=== PATIENT | female | born 1935 | race Caucasian/White ===

== ENCOUNTER 2018-07-14 05:56 | Inpatient (IN) ==
[2018-07-14] MEDS ORDERED: Morphine Inj 4 MG/ML Vial IV.PUSH ONE ×2 (06:59→08:07)
--- NOTE | 2018-07-14 07:20 | ED ---
HPI General Chief Complaint: Fall Stated Complaint: Fall/Right elbow injury Time Seen by Provider: 07/14/18 06:25 History of Present Illness HPI Narrative: This is an 82-year-old female with a history of hypertension, diabetes mellitus, coronary disease, presents today with complaints of right elbow pain and right knee pain after mechanical fall at 3 AM this morning. The patient reports that it is very difficult to walk on her leg because of the pain. She reports worst pain in her right elbow. She is able to flex however it is swollen and edematous. There are no other injuries at the time of my evaluation. Related Data Home Medications Medication Instructions Recorded Confirmed aspirin [Aspir-Low] 81 mg PO DAILY 07/05/18 07/14/18 atorvastatin 10 mg PO DAILY 07/05/18 07/14/18 cholecalciferol (vitamin D3) 5,000 unit PO DAILY 07/05/18 07/14/18 [Vitamin D3] diltiazem HCl 120 mg PO BID 07/05/18 07/14/18 furosemide 40 mg PO DAILY 07/05/18 07/14/18 glipizide 2.5 mg PO BID 07/05/18 07/14/18 losartan 25 mg PO DAILY 07/05/18 07/14/18 metformin 500 mg PO BID 07/05/18 07/14/18 metoprolol tartrate 50 mg PO BID 07/05/18 07/14/18 rivaroxaban [Xarelto] 20 mg PO DAILY 07/05/18 07/14/18 Previous Rx's Medication Instructions Recorded tramadol-acetaminophen 1 tab PO Q8HR PRN #5 tab 07/05/18 Allergies Allergy/AdvReac Type Severity Reaction Status Date / Time No Known Allergies Allergy Verified 07/14/18 06:16 Review of Systems ROS: all other systems reviewed are negative Constitutional Reports system reviewed and no additional complaints, except as docu Eyes Reports system reviewed and no additional complaints, except as docu ENT Denies facial pain and Denies neck pain Cardiovascular Reports system reviewed and no additional complaints, except as docu Respiratory Reports system reviewed and no additional complaints, except as docu Musculoskeletal Denies back pain, Denies deformity and Reports other (Right elbow and right knee pain.) Neurologic Denies focal weakness, Denies paresthesias and Denies weakness PMF Medical History Medical History History of atrial fibrillation (Acute) History of high blood pressure (Acute) Hx of diabetes mellitus (Acute) Surgical History Surgical History History of orthopedic surgery (Acute) Hx of abdominoplasty (Acute) Social History Social History Substance History: No History of Abuse Smoking Status: Current every day smoker Tobacco Type: Cigarettes How Often Do You Have a Drink Containing Alcohol: Never Recent Travel in [facility] within the Last 8 Weeks: No Recent Out of Country Travel within the Last 8 Weeks: No Immunization History Tetanus Immunization: <5 Years Hx Influenza Vaccine This Season: No Exam Narrative Exam Narrative: GENERAL: Well-nourished, well-developed patient, complaining of pain in her right elbow. SKIN: Focused skin assessment warm/dry. HEAD: Normocephalic/atraumatic. EYES: No scleral icterus. No injection or drainage. NECK: Supple, trachea midline. No JVD or lymphadenopathy. GASTROINTESTINAL: Abdomen soft, non-tender, nondistended. MUSCULOSKELETAL: Tenderness to palpation on the olecranon of the right elbow. No obvious bony deformity. There is swelling and possible hemarthrosis. On examination patient's right knee, there is no ligamentous laxity. Patella appears to be intact. There is no deformity. BACK: Nontender without obvious deformity. No CVA tenderness. NEUROLOGICAL: Awake and alert. Cranial nerves II through XII intact. Motor grossly within normal limits. Five out of 5 muscle strength in all muscle groups. Normal speech. Course Initial Documented Vital Signs Temperature 97.3 F L 07/14/18 06:02 Pulse Rate 105 H 07/14/18 06:02 Respiratory Rate 16 07/14/18 06:02 Blood Pressure 155/106 H 07/14/18 06:02 Pulse Oximetry 99 07/14/18 06:02 Last Documented Vital Signs Temperature 97.3 F L 07/14/18 06:02 Pulse Rate 84 07/14/18 08:21 Respiratory Rate 18 07/14/18 08:21 Blood Pressure 159/95 H 07/14/18 08:21 Pulse Oximetry 94 L 07/14/18 08:21 Medical Decision Making [facility] [place] Narrative Medical decision making narrative: This is an 82-year-old female with a history of atrial fibrillation, on Xarelto, presents today with complaints of right elbow and right knee pain after mechanical fall this morning at 3 AM. The patient has a posterior displaced olecranon fracture on the right elbow. Right knee x-ray appears to show no evidence of fracture or effusion. Case was discussed with Dr. Hemant Paz's [employer]PHOL[employer] MECHANICJose who was made aware of the presentation and the fact that the patient was on Xarelto. He requested she be made n.p.o. after midnight obviously they wish to hold the Xarelto. Medical Screen Exam Complete: Yes Emergency Medical Condition: Yes Lab Data Result diagrams: 07/14/18 08:25 07/14/18 08:25 Imaging Data Radiologist's impression: Elbow X-Ray 07/14/18 07:02 CONCLUSION: Olecranon fracture as above. Knee X-Ray 07/14/18 07:02 CONCLUSION: Osteoporosis, negative for joint effusion or fracture Extensive vascular calcifications. Discharge Plan Discharge Disposition Patient Disposition: 30 Still Patient Discharge Details Diagnosis: Displaced fracture of olecranon process of right ulna with intra-articular extension, Anticoagulated, Hypertension, Diabetes mellitus, Atrial fibrillation Physicians Team ED Provider: Mann Segura Primary Care Provider: Laury Jameson Attending Provider: Kamran Thomas Discharge Interventions Interventions: Vital Signs Last Done: 07/14/18 08:21 Status ED Status: Admitted Patient
[2018-07-14] MEDS ORDERED: Metoprolol Tartrate 50 MG Tablet PO ONE (07:38)
--- NOTE | 2018-07-14 07:58 | XR ---
EXAM DATE: 07/14/2018 7:02 AM EDT AGE/SEX: 82 years / Female INDICATIONS: Right posterior elbow pain post fall. CLINICAL DATA: This is the patient's initial encounter. Patient reports that signs and symptoms have been present for 1 day and indicates a pain score of 9/10. MEDICAL/SURGICAL HISTORY: None. None. COMPARISON: [facility], ELBOW COMPLETE RIGHT 4V, 07/05/2018. . FINDINGS: Bones are osteoporotic. There is a fracture of the olecranon with a large joint effusion present. Fra cture fragments are displaced by 4 cm. Humerus is aligned with the radial head. CONCLUSION: Olecranon fracture as above. Electronically signed by: Angel Luis Nixon MD 07/14/2018 7:57 AM EDT
--- NOTE | 2018-07-14 07:59 | XR ---
EXAM DATE: 07/14/2018 7:02 AM EDT AGE/SEX: 82 years / Female INDICATIONS: Right knee pain post fall this morning CLINICAL DATA: This is the patient's initial encounter. Patient reports that signs and symptoms have been present for 1 day and indicates a pain score of 6/10. MEDICAL/SURGICAL HISTORY: None. None. COMPARISON: No prior exams available for comparison. FINDINGS: Bones are osteoporotic. Extensive vascular calcifications are noted. There is no pleural effusion. An atomic alignment without fracture. CONCLUSION: Osteoporosis, negative for joint effusion or fracture Extensive vascular calcifications. Electronically signed by: Angel Luis Nixon MD 07/14/2018 7:58 AM EDT
[2018-07-14 08:49] LABS: Activated Partial Thrombo Time 27.9 sec (24.3-30.1); INR 1.1 Ratio
[2018-07-14 08:56] LABS: Alanine Aminotransferase 24 U/L (10-53); Albumin 3.7 g/dL (3.4-5.0); Alkaline Phosphatase 121 U/L (45-117); Anion Gap 12 meq/L (5-15); Aspartate Aminotransferase 18 U/L (15-37); Blood Urea Nitrogen 20 mg/dL (7-18); Calcium 10.3 mg/dL (8.5-10.1); Carbon Dioxide 29.7 meq/L (21.0-32.0); Chloride 100 meq/L (98-107); Glomerular Filtration Rate 39 mL/min (>89); Glucose,Random 172 mg/dL (74-106); Sodium 142 meq/L (136-145); Total Protein 7.4 g/dL (6.4-8.2)
[2018-07-14] MEDS ORDERED: Dextrose 50% in Water 50 ML Vial IV.PUSH PRN (08:56)
[2018-07-14 08:58] LABS: Potassium 2.7 meq/L (3.5-5.1)
[2018-07-14 09:01] LABS: Baso # (Auto) 0.1 th/mm3 (0.0-0.2); Baso % (Auto) 0.5 % (0.0-2.0); Eos # (Auto) 0.1 th/mm3 (0.0-0.4); Eos % (Auto) 0.6 % (0.0-4.0); Hematocrit 39.3 % (35.0-46.0); Hemoglobin 13.5 gm/dL (11.6-15.3); Lymph # (Auto) 2.4 th/mm3 (1.0-4.8); Lymph % (Auto) 16.9 % (9.0-44.0); Mean Corpuscular HGB Conc 34.4 % (32.0-36.0); Mean Corpuscular Hemoglobin 34.2 pg (27.0-34.0); Mean Corpuscular Volume 99.3 fL (80.0-100.0); Mean Platelet Volume 9.9 fL (7.0-11.0); Mono # (Auto) 0.8 th/mm3 (0.0-0.9); Mono % (Auto) 5.5 % (0.0-8.0); Neut # (Auto) 10.8 th/mm3 (1.8-7.7); Neut % (Auto) 76.5 % (16.0-70.0); Platelet Count 261 th/mm3 (150-450); Red Blood Count 3.95 mil/mm3 (4.00-5.30); Red Cell Distribution Width 13.6 % (11.6-17.2); White Blood Count 14.2 th/mm3 (4.0-11.0)
--- NOTE | 2018-07-14 09:07 | P.HPIM ---
History of Present Illness Primary Care Physician: Laury Jameson MD History of Present Illness: Mrs. Rosenbaum is an 82-year-old female. She was admitted secondary to fall in which she sustained a left elbow fracture. The fracture is displaced. Surgical intervention is needed. She has had falls in the past but does not have that her no frequent falls. No other complaints at this time. Pain is controlled when seen. Potassium level is low in the ER. - Diagnosis (1) Displaced fracture of olecranon process of right ulna with intra-articular extension (2) Hypertension (3) Diabetes mellitus (4) Atrial fibrillation Inpatient Certification: I certify that the inpatient services were ordered in accordance with Medicare regulations governing the order. This includes certification that hospital inpatient services are reasonable and necessary and in the case of services not specified as inpatient-only under 42 CFR 419.22(n), that they are appropriately provided as inpatient services in accordance to with the 2-midnight benchmark under 43 CFR 412.3(e) Estimated Total Length of Stay (Days): 3 Plans for Post Hospital Care: SNF Review of Systems Constitutional: No fevers, no chills no night sweats, no fatigue, no weakness Eyes: No eye pain, no blurry vision, no loss of vision ENT: No sore throat, no ear pain, no rhinorrhea Cardiovascular: No chest pain, no tachycardia, no palpitations, no shortness of breath, no syncope Respiratory: No wheezing, no cough, no shortness of breath Gastrointestinal: No abdominal pain, no black tarry stools, no bright red blood per rectum, no vomiting, no diarrhea Musculoskeletal: joint pain, no muscle cramps, no stiffness Integumentary: No rash, no ulcers, no drainage Neurologic: No sensory loss, no loss of motor function, no dizziness Psychiatric: No behavioral changes, no hallucinations, no suicidal ideations PMFSH - History History Provided By: Patient - Medical History Medical History: Medical History (Last Updated 07/14/18 @ 06:20 by Cheryl Armendariz RN) History of atrial fibrillation History of high blood pressure Hx of diabetes mellitus - Surgical History Surgical History: Surgical History (Last Updated 07/14/18 @ 06:20 by Cheryl Armendariz RN) History of orthopedic surgery Hx of abdominoplasty - Family History Family History: Family History (Last Updated 07/14/18 @ 09:00 by Kamran Thomas MD) Other Diabetes Osteoarthritis - Tobacco History Tobacco Use In Past 30 Days: Yes Smoking Status: Current every day smoker Tobacco Type: Cigarettes - Alcohol History How Often Do You Have a Drink Containing Alcohol: Never - Substance Use History Substance History: No History of Abuse - Travel History Recent Travel in the [place] Within the Last 8 Weeks: No Recent Travel Out of the Country Within the Last 8 Weeks: No - Immunization History Tetanus Immunization: <5 Years Hx Influenza Vaccine This Season: No Medications and Allergies Allergies Allergy/AdvReac Type Severity Reaction Status Date / Time No Known Allergies Allergy Verified 07/14/18 06:16 Home Medications Medication Instructions Recorded Confirmed Type aspirin [Aspir-Low] 81 mg PO DAILY 07/05/18 07/14/18 History atorvastatin 10 mg PO DAILY 07/05/18 07/14/18 History cholecalciferol (vitamin D3) 5,000 unit PO DAILY 07/05/18 07/14/18 History [Vitamin D3] diltiazem HCl 120 mg PO BID 07/05/18 07/14/18 History furosemide 40 mg PO DAILY 07/05/18 07/14/18 History glipizide 2.5 mg PO BID 07/05/18 07/14/18 History losartan 25 mg PO DAILY 07/05/18 07/14/18 History metformin 500 mg PO BID 07/05/18 07/14/18 History metoprolol tartrate 50 mg PO BID 07/05/18 07/14/18 History rivaroxaban [Xarelto] 20 mg PO DAILY 07/05/18 07/14/18 History Exam Vital signs: Vital Signs 07/14/18 06:02 07/14/18 07:32 07/14/18 07:37 Temperature 97.3 F L Pulse Rate 105 H 80 Respiratory Rate 16 18 18 Blood Pressure 155/106 H 206/101 H Pulse Oximetry 99 93 L 07/14/18 08:21 Temperature Pulse Rate 84 Respiratory Rate 18 Blood Pressure 159/95 H Pulse Oximetry 94 L Intake & Output 07/13/18 07/14/18 07/14/18 18:59 06:59 18:59 Weight 75.7 kg Narrative: GENERAL: NAD, A&Ox3 HEAD: Normocephalic. NECK: Supple, trachea midline. No lymphadenopathy. EYES: No scleral icterus. No injection or drainage. CARDIOVASCULAR: Regular rate and rhythm without murmurs, gallops, or rubs. RESPIRATORY: Breath sounds equal bilaterally. No accessory muscle use. GASTROINTESTINAL: Abdomen soft, non-tender, nondistended. MUSCULOSKELETAL: No cyanosis, or edema. Tenderness and decreased ROM at right elbow. SKIN: Warm and dry. NEURO: No focal neurological deficits. Results - Labs CBC & Chem 7: 07/14/18 08:25 07/14/18 08:25 - Imaging Impressions Elbow X-Ray 07/14/18 07:02 CONCLUSION: Olecranon fracture as above. Knee X-Ray 07/14/18 07:02 CONCLUSION: Osteoporosis, negative for joint effusion or fracture Extensive vascular calcifications. Caprini VTE Risk Assessment Caprini VTE Risk Assessment: No/Low Risk (score <= 1) Caprini Risk Assessment Model: Point Value = 1 Point Value = 2 Point Value = 3 Point Value = 5 Age 41-60 Minor surgery BMI > 25 kg/m2 Swollen legs Varicose veins or History of unexplained or recurrent spontaneous Oral contraceptives or hormone replacement Sepsis (< 1 month) Serious lung disease, including pneumonia (< 1 month) Abnormal pulmonary function Acute myocardial infarction Congestive heart failure (< 1 month) History of inflammatory bowel disease Medical patient at bed rest Age 61-74 Arthroscopic surgery Major open surgery (> 45 min) Laparoscopic surgery (> 45 min) Malignancy Confined to bed (> 72 hours) Immobilizing plaster cast Central venous access Age >= 75 History of VTE Family history of VTE Factor V Leiden Prothrombin [id number] Lupus anticoagulant Anticardiolipin antibodies Elevated serum homocysteine Heparin-induced thrombocytopenia Other congenital or acquired thrombophilia Stroke (< 1 month) Elective arthroplasty Hip, pelvis, or leg fracture Acute spinal cord injury (< 1 month) Prophylaxis Regimen: Total Risk Factor Score Risk Level Prophylaxis Regimen 0-1 Low Early ambulation 2 Moderate Order ONE of the following: *Sequential Compression Device (SCD) *Heparin 5000 units SQ BID 3-4 Higher Order ONE of the following medications: *Heparin 5000 units SQ TID *Enoxaparin/Lovenox 40 mg SQ daily (WT < 150 kg, CrCl > 30 mL/min) *Enoxaparin/Lovenox 30 mg SQ daily (WT < 150 kg, CrCl > 10-29 mL/min) *Enoxaparin/Lovenox 30 mg SQ BID (WT < 150 kg, CrCl > 30 mL/min) AND/OR *Sequential Compression Device (SCD) 5 or more Highest Order ONE of the following medications: *Heparin 5000 units SQ TID (Preferred with Epidurals) *Enoxaparin/Lovenox 40 mg SQ daily (WT < 150 kg, CrCl > 30 mL/min) *Enoxaparin/Lovenox 30 mg SQ daily (WT < 150 kg, CrCl > 10-29 mL/min) *Enoxaparin/Lovenox 30 mg SQ BID (WT < 150 kg, CrCl > 30 mL/min) AND *Sequential Compression Device (SCD) Assessment and Plan - Assessment (1) Displaced fracture of olecranon process of right ulna with intra-articular extension Code(s): S52.031A - Status: Acute (2) Hypertension Code(s): I10 - Status: Acute (3) Diabetes mellitus Code(s): E11.9 - Status: Acute (4) Atrial fibrillation Code(s): I48.91 - Status: Acute - Plan 82 year old female admitted secondary to displaced right elbow fracture Displaced right elbow fracture [place] for pain Orthopedic surgeon consulted Plan for surgical repair NPO after midnight Physical therapy after surgery Occupational therapy after surgery Diabetes mellitus type 2 Follow blood sugars Insulin sliding scale Diabetic diet Hypertension Continue baseline treatment Follow blood pressures Adjust treatments as needed As needed enalapril Atrial fibrillation Follow on telemetry Controlled Hold anticoagulation for pending surgery Continue diltiazem Resume Xarelto after surgery completed. Hypokalemia Provide potassium supplement Recheck this afternoon Replace as needed Continue to monitor DVT prophylaxis Currently on Xarelto Xarelto on hold for surgery Resume Xarelto after surgery (1) Displaced fracture of olecranon process of right ulna with intra-articular extension Qualifiers: Encounter type: initial encounter Fracture type: closed Qualified Code(s): S52.031A - Displaced fracture of olecranon process with intraarticular extension of right ulna, initial encounter for closed fracture (2) Hypertension Qualifiers: Hypertension type: unspecified Qualified Code(s): I10 - Essential (primary) hypertension (3) Diabetes mellitus Qualifiers: Diabetes mellitus type: type 2 Diabetes mellitus penitentiary insulin use: without penitentiary use (4) Atrial fibrillation Qualifiers: Atrial fibrillation type: chronic Qualified Code(s): I48.2 - Chronic atrial fibrillation
[2018-07-14] MEDS: Furosemide 40 MG Tablet PO SCH (09:37)
[2018-07-14] MEDS: dilTIAZem CD 240 MG Capsule PO SCH (09:38)
[2018-07-14] MEDS: Sod Chloride 0.9% Inj 1,000 ML IV.CONT SCH (09:39)
[2018-07-14] MEDS: Insulin NovoLOG Aspart Correctional Sugar Inj SQ SCH ×3 (12:56→20:33)
--- NOTE | 2018-07-14 15:48 | ECG ---
Date Performed: 07/14/2018 Time Performed: 08:16:58 PTAGE: 82 years EKG: ATRIAL FIBRILLATION MARKED LEFT AXIS DEVIATION INTRAVENTRICULAR CONDUCTION DELAY VOLTAGE CR ITERIA FOR LVH POSSIBLE SEPTAL MYOCARDIAL INFARCTION ABNORMAL ECG PREVIOUS TRACING : 05/03/2015 00.23 Compared to previous tracing,atrial fibrillation is new. DOCTOR: Heidi Rizzo Interpretating Date/Time 07/14/2018 15:47:14
[2018-07-14] MEDS: Metoprolol Tartrate 50 MG Tablet PO SCH (20:33)
--- NOTE | 2018-07-14 21:40 | P.CONOP ---
[facility] Orthopedics Consult Note - [facility] Consult date: 07/14/18 Consult reason: fracture Chief complaint: Right Displaced Olecranon Fracture, Anticoagulated Narrative: 82 year old female status post mechanical fall last night landing on right elbow and knee. Chief complaint is right elbow pain and right knee pain with giving way. She notes no previous problems with the elbow but prior surgery on the right knee to fix a patella fracture several years ago. Right elbow pain is located to the posterior elbow, worse with movement, better with immobilization and pain medication. She notes some decreased sensation in the small finger since the injury. Denies weakness. Also complaining of right knee pain and instability sensation when she tries to put weight on it. She locates the pain to the anterior aspect of the knee. She denies numbness, tingling or weakness. It is worse with full extension and attempted weight bearing. Denies other injury. Of note she is on Xarelto for a fib, last taken yesterday. Review of Systems All other systems reviewed negative except as stated in HPI Musculoskeletal: Reports joint pain Comments: right elbow, right knee PMFSH - History History Provided By: Patient - Medical History Medical History: Medical History (Last Reviewed 07/14/18 @ 21:26 by Afia Li MD) History of atrial fibrillation History of high blood pressure Hx of diabetes mellitus - Surgical History Surgical History: Surgical History (Last Reviewed 07/14/18 @ 21:26 by Afia Li MD) History of orthopedic surgery (Acute) Hx of abdominoplasty - Family History Family History: Family History (Last Reviewed 07/14/18 @ 21:26 by Afia Li MD) Other Diabetes Osteoarthritis - Social History I have reviewed the patient's Social History: Yes - Tobacco History Second Hand Smoke Exposure: Yes Tobacco Use In Past 30 Days: Yes Smoking Status: Current every day smoker Tobacco Type: Cigarettes - Alcohol History How Often Do You Have a Drink Containing Alcohol: Never - Substance Use History Substance History: No History of Abuse - Travel History Recent Travel in the [place] Within the Last 8 Weeks: No Recent Travel Out of the Country Within the Last 8 Weeks: No - Immunization History Tetanus Immunization: <5 Years Hx Influenza Vaccine This Season: No Medications and Allergies Active Medications: Active Medications Hydrocodone Bitart/Acetaminophen ([place] 10/325) 1 tab PO Q4H PRN PRN Reason: Pain 7 to 10 Hydrocodone Bitart/Acetaminophen ([place] 5/325) 1 tab PO Q4H PRN PRN Reason: Pain 3 to 6 Last Admin: 07/14/18 16:38 Dose: 1 tab Al Hydroxide/Mg Hydroxide (Milk Of [place] Liq) 30 ml PO Q12H PRN PRN Reason: Mild Constipation Atorvastatin Calcium (Lipitor) 10 mg PO DAILY [facility] Last Admin: 07/14/18 09:37 Dose: 10 mg Dextrose (D50w Vial) 50 ml IV.PUSH UNSCH PRN PRN Reason: PER HYPOGLYCEMIA PROTOCOL Diltiazem HCl (Cardizem Cd 24hr) 240 mg PO DAILY [facility] Last Admin: 07/14/18 09:38 Dose: 240 mg Enalaprilat (Vasotec Inj) 1.25 mg IV.PUSH Q6H PRN PRN Reason: SBP>160, DBP>90 Last Admin: 07/14/18 10:38 Dose: 1.25 mg Furosemide (Lasix) 40 mg PO DAILY [facility] Last Admin: 07/14/18 09:37 Dose: 40 mg Glucagon (Glucagon Inj) 1 mg OTHER PRN PRN PRN Reason: for Hypoglycemia Protocol Sodium Chloride (Ns Inj) 1,000 mls @ 75 mls/hr IV.CONT .[id number] [facility] Last Infusion: 07/14/18 11:16 Dose: 75 mls/hr Insulin Aspart (Novolog Insulin [place] Sugar Inj) 0 unit SQ ACHS [facility]; Protocol Last Admin: 07/14/18 20:33 Dose: Not Given Losartan Potassium (Cozaar) 25 mg PO DAILY [facility] Metoprolol Tartrate (Lopressor) 50 mg PO BID [facility] Last Admin: 07/14/18 20:33 Dose: 50 mg Ondansetron HCl (Zofran Inj) 4 mg IV.PUSH Q6H PRN PRN Reason: NAUSEA OR VOMITING Last Admin: 07/14/18 19:04 Dose: 4 mg Vitamin D (Vitamin D3) 5,000 unit PO DAILY [facility] Last Admin: 07/14/18 09:38 Dose: 5,000 unit Allergies Allergy/AdvReac Type Severity Reaction Status Date / Time No Known Allergies Allergy Verified 07/14/18 06:16 Home Medications Medication Instructions Recorded Confirmed Type aspirin [Aspir-Low] 81 mg PO DAILY 07/05/18 07/14/18 History atorvastatin 10 mg PO DAILY 07/05/18 07/14/18 History cholecalciferol (vitamin D3) 5,000 unit PO DAILY 07/05/18 07/14/18 History [Vitamin D3] diltiazem HCl 120 mg PO BID 07/05/18 07/14/18 History furosemide 40 mg PO DAILY 07/05/18 07/14/18 History glipizide 2.5 mg PO BID 07/05/18 07/14/18 History losartan 25 mg PO DAILY 07/05/18 07/14/18 History metformin 500 mg PO BID 07/05/18 07/14/18 History metoprolol tartrate 50 mg PO BID 07/05/18 07/14/18 History rivaroxaban [Xarelto] 20 mg PO DAILY 07/05/18 07/14/18 History Exam Vital signs: Vital Signs 07/14/18 06:02 07/14/18 07:32 07/14/18 07:37 Temperature 97.3 F L Pulse Rate 105 H 80 Respiratory Rate 16 18 18 Blood Pressure 155/106 H 206/101 H Pulse Oximetry 99 93 L 07/14/18 08:21 07/14/18 08:30 07/14/18 09:07 Temperature Pulse Rate 84 84 Respiratory Rate 18 Blood Pressure 159/95 H Pulse Oximetry 94 L 95 07/14/18 09:16 07/14/18 10:03 07/14/18 10:41 Temperature Pulse Rate 76 84 77 Respiratory Rate 18 18 18 Blood Pressure 181/95 H 171/81 H 195/116 H Pulse Oximetry 95 95 93 L 07/14/18 11:02 07/14/18 12:00 07/14/18 15:45 Temperature 98 F 98 F Pulse Rate 80 75 88 Respiratory Rate 18 20 20 Blood Pressure 179/108 H 165/80 H 152/82 H Pulse Oximetry 97 94 L 96 Intake & Output 07/14/18 07/14/18 07/15/18 06:59 18:59 06:59 Intake Total 100 / 100 Balance 100 / 100 Weight 75.7 kg 75.7 kg Intake: IV 100 / 100 NS Inj 1,000 ML @ 75 mls/hr IV. 100 / 100 CONT .[id number] [facility] Rx#: [id number] Other: Date of Last Bowel Movement 07/14/18 Weight On Admission 75.7 kg - Constitutional no acute distress, cooperative - Routine HEENT Exam Head: Present: normocephalic, atraumatic - Routine Neck Exam Present: supple - Routine Respiratory Exam Absent: accessory muscle use - Routine Cardiovascular Exam Present: RRR - Routine Extremities Exam Present: joint swelling Comments: right elbow - Detailed Upper Extremity Exam Elbow: Right deformity, Right swelling, Right tenderness (olecranon), Right wound (small scab noted laterally from previous fall), Right pain with passive ROM - Detailed Lower Extremity Exam Knee: Left normal inspection, Right pain with active ROM (extension), Right pain with passive ROM (extension), Bilateral intact knee extension - Routine Neurological Exam Present: alert, oriented X3 Results - Labs Result Diagrams: 07/14/18 08:25 07/14/18 13:14 Labs: Laboratory Results - last 24 hr 07/14/18 07/14/18 07/14/18 08:25 08:25 08:25 CBC w Diff Auto diff final WBC 14.2 H RBC 3.95 L Hgb 13.5 Hct 39.3 MCV 99.3 MCH 34.2 H MCHC 34.4 RDW 13.6 Plt Count 261 MPV 9.9 Neut % (Auto) 76.5 H Lymph % (Auto) 16.9 [place] % (Auto) 5.5 Eos % (Auto) 0.6 Baso % (Auto) 0.5 Neut # (Auto) 10.8 H Lymph # (Auto) 2.4 [place] # (Auto) 0.8 Eos # (Auto) 0.1 Baso # (Auto) 0.1 WBC Differential . Differential Comment . PT 11.0 INR 1.1 APTT 27.9 Sodium 142 Potassium 2.7 L* Chloride 100 Carbon Dioxide 29.7 Anion Gap 12 BUN 20 H Creatinine 1.30 H Estimated GFR 39 L POC Glucose Random Glucose 172 H Calcium 10.3 H Total Bilirubin 0.6 AST 18 ALT 24 Alkaline Phosphatase 121 H Total Protein 7.4 Albumin 3.7 Blood Type Blood Type Recheck Antibody Screen 07/14/18 07/14/18 07/14/18 08:25 12:43 13:14 CBC w Diff WBC RBC Hgb Hct MCV MCH MCHC RDW Plt Count MPV Neut % (Auto) Lymph % (Auto) [place] % (Auto) Eos % (Auto) Baso % (Auto) Neut # (Auto) Lymph # (Auto) [place] # (Auto) Eos # (Auto) Baso # (Auto) WBC Differential Differential Comment PT INR APTT Sodium Potassium 2.9 L* Chloride Carbon Dioxide Anion Gap BUN Creatinine Estimated GFR POC Glucose 159 H Random Glucose Calcium Total Bilirubin AST ALT Alkaline Phosphatase Total Protein Albumin Blood Type A Positive Blood Type Recheck Not needed Antibody Screen Negative 07/14/18 20:31 CBC w Diff WBC RBC Hgb Hct MCV MCH MCHC RDW Plt Count MPV Neut % (Auto) Lymph % (Auto) [place] % (Auto) Eos % (Auto) Baso % (Auto) Neut # (Auto) Lymph # (Auto) [place] # (Auto) Eos # (Auto) Baso # (Auto) WBC Differential Differential Comment PT INR APTT Sodium Potassium Chloride Carbon Dioxide Anion Gap BUN Creatinine Estimated GFR POC Glucose 176 H Random Glucose Calcium Total Bilirubin AST ALT Alkaline Phosphatase Total Protein Albumin Blood Type Blood Type Recheck Antibody Screen - Diagnostic results Imaging: Impressions Elbow X-Ray 07/14/18 07:02 CONCLUSION: Olecranon fracture as above. Knee X-Ray 07/14/18 07:02 CONCLUSION: Osteoporosis, negative for joint effusion or fracture Extensive vascular calcifications. Elbow x-ray: report reviewed, image reviewed (displaced olecranon fracture) Knee x-ray: report reviewed, image reviewed (osteoarthritis) Assessment and Plan - Problem List (1) Displaced fracture of olecranon process of right ulna with intra-articular extension Code(s): S52.031A - Displaced fracture of olecranon process with intraarticular extension of right ulna, initial encounter for closed fracture Status: Acute Onset Date: ~07/14/18 Qualifiers: Encounter type: initial encounter Fracture type: closed Qualified Code(s) : S52.031A - Displaced fracture of olecranon process with intraarticular extension of right ulna, initial encounter for closed fracture - Assessment and Plan Assessment: 82 year old female with right displaced, closed olecranon fracture Plan: 1. NWB RUE in sling/splint 2. Pain control 3. To OR 07/15/18 for ORIF right olecranon pending medical clearance. I discussed the risks, benefits and alternatives to the procedure with the patient and she would like to proceed with surgical fixation. 4. NPO after midnight 5. Hold anticoagulation for surgery
[2018-07-14] MEDS ORDERED: Metoprolol Tartrate 25 MG Tablet PO ONE (22:42)
[2018-07-14] MEDS ORDERED: Chlorhexidine Gluconate 2% 1 Pack (2 Cloths) TOPICAL ONE (22:42)
[2018-07-14] MEDS ORDERED: Sodium Chlor 0.9% Inj 500 ML IV.SIG SCH (23:00)
[2018-07-15] MEDS: Sod Chloride 0.9% Inj 1,000 ML IV.CONT SCH ×2 (01:07→12:36)
[2018-07-15 06:33] LABS: Baso # (Auto) 0.1 th/mm3 (0.0-0.2); Baso % (Auto) 0.9 % (0.0-2.0); Eos # (Auto) 0.1 th/mm3 (0.0-0.4); Eos % (Auto) 0.8 % (0.0-4.0); Hematocrit 37.3 % (35.0-46.0); Hemoglobin 12.6 gm/dL (11.6-15.3); Lymph # (Auto) 2.2 th/mm3 (1.0-4.8); Lymph % (Auto) 22.3 % (9.0-44.0); Mean Corpuscular HGB Conc 33.8 % (32.0-36.0); Mean Corpuscular Hemoglobin 33.2 pg (27.0-34.0); Mean Corpuscular Volume 98.1 fL (80.0-100.0); Mean Platelet Volume 9.3 fL (7.0-11.0); Mono # (Auto) 0.8 th/mm3 (0.0-0.9); Mono % (Auto) 7.7 % (0.0-8.0); Neut # (Auto) 6.7 th/mm3 (1.8-7.7); Neut % (Auto) 68.3 % (16.0-70.0); Platelet Count 234 th/mm3 (150-450); Red Cell Distribution Width 14.8 % (11.6-17.2); White Blood Count 9.8 th/mm3 (4.0-11.0)
[2018-07-15 06:53] LABS: Alanine Aminotransferase 18 U/L (10-53); Albumin 3.3 g/dL (3.4-5.0); Anion Gap 9 meq/L (5-15); Aspartate Aminotransferase 15 U/L (15-37); Blood Urea Nitrogen 17 mg/dL (7-18); Calcium 9.6 mg/dL (8.5-10.1); Carbon Dioxide 30.1 meq/L (21.0-32.0); Chloride 104 meq/L (98-107); Glomerular Filtration Rate 44 mL/min (>89); Glucose,Random 122 mg/dL (74-106); Sodium 143 meq/L (136-145)
[2018-07-15 06:56] LABS: Alkaline Phosphatase 123 U/L (45-117); Total Protein 6.7 g/dL (6.4-8.2)
[2018-07-15] MEDS: dilTIAZem CD 240 MG Capsule PO SCH (09:21)
[2018-07-15] MEDS: Metoprolol Tartrate 50 MG Tablet PO SCH ×2 (09:22→20:45)
[2018-07-15] MEDS: Furosemide 40 MG Tablet PO SCH (09:22)
[2018-07-15] MEDS: Insulin NovoLOG Aspart Correctional Sugar Inj SQ SCH ×4 (10:22→21:02)
--- NOTE | 2018-07-15 12:16 | P.PN ---
Subjective Interval history: Follow-up right displaced olecranon fracture July 15, 2018-patient seen and examined, denies any significant right upper extremity pain. Currently n.p.o. Daughter by the bedside Physical Exam Vital signs: Vital Signs 07/14/18 15:45 07/14/18 20:00 07/15/18 00:00 Temperature 98 F 97.6 F 98.0 F Pulse Rate 88 90 76 Respiratory Rate 20 17 16 Blood Pressure 152/82 H 149/78 H 162/89 H Pulse Oximetry 96 94 L 95 07/15/18 03:12 07/15/18 08:00 07/15/18 09:00 Temperature 98.5 F 98.3 F Pulse Rate 91 H 88 82 Respiratory Rate 18 18 Blood Pressure 187/80 H 169/91 H Pulse Oximetry 95 97 Intake & Output 07/14/18 07/15/18 07/15/18 18:59 06:59 18:59 Intake Total 100 / 100 100 / 100 Output Total 100 / 100 Balance 100 / 100 100 / 100 -100 / -100 Weight 75.7 kg Intake: IV 100 / 100 100 / 100 NS Inj 1,000 ML @ 75 mls/hr IV. 100 / 100 100 / 100 CONT .[id number] [facility] Rx#: [id number] Output: Urine 100 / 100 Other: # Voids 3 Date of Last Bowel Movement 07/14/18 07/14/18 Weight On Admission 75.7 kg Narrative: GENERAL: NAD SKIN: Warm and dry. HEAD: Atraumatic. Normocephalic. EYES: Pupils equal and round. No scleral icterus. No injection or drainage. ENT: No nasal bleeding or discharge. Mucous membranes pink and moist. NECK: Trachea midline. No JVD. CARDIOVASCULAR: Regular rate and rhythm. RESPIRATORY: No accessory muscle use. Clear to auscultation. Breath sounds equal bilaterally. GASTROINTESTINAL: Abdomen soft, non-tender, nondistended. Hepatic and splenic margins not palpable. MUSCULOSKELETAL: Extremities without clubbing, cyanosis, or edema. No obvious deformities. NEUROLOGICAL: Awake and alert. No obvious cranial nerve deficits. Motor grossly within normal limits. Five out of 5 muscle strength in the arms and legs. Right upper extremity in dressing-neurovascular intact PSYCHIATRIC: Appropriate mood and affect; insight and judgment normal. Results - Labs CBC & Chem 7: 07/15/18 05:11 07/15/18 05:11 Laboratory Results - last 24 hr 07/14/18 07/14/18 07/14/18 12:43 13:14 20:31 WBC RBC Hgb Hct MCV MCH MCHC RDW Plt Count MPV Neut % (Auto) Lymph % (Auto) [place] % (Auto) Eos % (Auto) Baso % (Auto) Neut # (Auto) Lymph # (Auto) [place] # (Auto) Eos # (Auto) Baso # (Auto) WBC Differential Differential Comment Sodium Potassium 2.9 L* Chloride Carbon Dioxide Anion Gap BUN Creatinine Estimated GFR POC Glucose 159 H 176 H Random Glucose Calcium Total Bilirubin AST ALT Alkaline Phosphatase Total Protein Albumin 07/15/18 07/15/18 07/15/18 05:11 05:11 07:41 WBC 9.8 RBC 3.80 L Hgb 12.6 Hct 37.3 MCV 98.1 MCH 33.2 MCHC 33.8 RDW 14.8 Plt Count 234 MPV 9.3 Neut % (Auto) 68.3 Lymph % (Auto) 22.3 [place] % (Auto) 7.7 Eos % (Auto) 0.8 Baso % (Auto) 0.9 Neut # (Auto) 6.7 Lymph # (Auto) 2.2 [place] # (Auto) 0.8 Eos # (Auto) 0.1 Baso # (Auto) 0.1 WBC Differential . Differential Comment Auto diff final Sodium 143 Potassium 3.0 L Chloride 104 Carbon Dioxide 30.1 Anion Gap 9 BUN 17 Creatinine 1.17 H Estimated GFR 44 L POC Glucose 128 H Random Glucose 122 H Calcium 9.6 Total Bilirubin 0.6 AST 15 ALT 18 Alkaline Phosphatase 123 H Total Protein 6.7 D Albumin 3.3 L Assessment and Plan - Assessment (1) Displaced fracture of olecranon process of right ulna with intra-articular extension Code(s): S52.031A - Displaced fracture of olecranon process with intraarticular extension of right ulna, initial encounter for closed fracture Status: Acute Onset Date: ~07/14/18 (2) Hypertension Code(s): I10 - Essential (primary) hypertension Status: Acute (3) Diabetes mellitus Code(s): E11.9 - Type 2 diabetes mellitus without complications Status: Acute (4) Atrial fibrillation Code(s): I48.91 - Unspecified atrial fibrillation Status: Acute - Plan 82-year-old female with Displaced right elbow fracture [place] for pain Orthopedic surgeon consulted for repair today July 15, 2018 Patient is medically clear for surgery Physical therapy after surgery Occupational therapy after surgery Diabetes mellitus type 2 Insulin sliding scale Diabetic diet Hypertension Continue baseline treatment As needed enalapril Atrial fibrillation Controlled Hold anticoagulation for pending surgery Continue diltiazem Resume Xarelto after surgery completed. Hypokalemia Please let try to monitor DVT prophylaxis Currently on Xarelto Xarelto on hold for surgery Patient is medically clear for surgery today (1) Displaced fracture of olecranon process of right ulna with intra-articular extension Qualifiers: Encounter type: initial encounter Fracture type: closed Qualified Code(s): S52.031A - Displaced fracture of olecranon process with intraarticular extension of right ulna, initial encounter for closed fracture (2) Hypertension Qualifiers: Hypertension type: unspecified Qualified Code(s): I10 - Essential (primary) hypertension (3) Diabetes mellitus Qualifiers: Diabetes mellitus type: type 2 Diabetes mellitus long term acute care registered nurse insulin use: without long term acute care registered nurse use (4) Atrial fibrillation Qualifiers: Atrial fibrillation type: chronic Qualified Code(s): I48.2 - Chronic atrial fibrillation
[2018-07-15] MEDS ORDERED: Lidocaine PF 1% Inj 5 ML Syringe OTHER ONE (13:15)
[2018-07-15] MEDS ORDERED: Glycopyrrolate Inj 1 MG/5 ML Syringe IV.PUSH ONE (13:15)
[2018-07-15] MEDS ORDERED: Neostigmine Inj 5 MG/5 ML Syringe IV.PUSH ONE (13:15)
[2018-07-15] MEDS ORDERED: Phenylephrine/NS 1000 MCG/10ML Syringe IV.PUSH ONE (13:15)
[2018-07-15] MEDS ORDERED: Ketamine Inj 50 MG/5 ML Syringe IV.PUSH ONE (13:44)
--- NOTE | 2018-07-15 15:12 | XR ---
EXAM DATE: 07/15/2018 12:00 AM EDT AGE/SEX: 82 years / Female INDICATIONS: ORIF fracture right elbow. CLINICAL DATA: This is the patient's initial encounter. Patient reports that signs and symptoms have been present for 1 day and indicates a pain score of Nonresponsive. MEDICAL/SURGICAL HISTORY: None. None. COMPARISON: [facility]PO, ELBOW COMPLETE RIGHT 4V, 07/05/2018. . FINDINGS: A single AP coned-down view of the elbow was obtained using a matrix camera and demonstrates 2 small metallic structures projected over the trochlea. The joint is preserved and congruent in appearance. There is overlying artifact. CONCLUSION: Limited single view exam. Electronically signed by: Toi Alarcon MD 07/15/2018 3:11 PM EDT
--- NOTE | 2018-07-15 15:31 | P.BOP ---
- Preoperative Diagnosis (1) Displaced fracture of olecranon process of right ulna with intra-articular extension - Postoperative Diagnosis (1) Displaced fracture of olecranon process of right ulna with intra-articular extension Date of procedure: 07/15/18 Procedure: Right elbow olecranon fracture fragment excision with triceps tendon advancement Implants: [employer] G2 anchors x2 Anesthesia: GETA Surgeon: Afia iL MD Estimated blood loss (mL): 25 Tourniquet time (min): 70 Pathology: none sent Condition: stable Disposition: PACU
[2018-07-15] MEDS ORDERED: fentaNYL Citrate Inj 100 MCG/2 ML Ampul ONE (15:39)
[2018-07-15] MEDS ORDERED: *Enalaprilat Inj 1.25 MG/ML Vial IV.PUSH ONE (16:07)
[2018-07-15] MEDS ORDERED: *Labetalol HCl Inj 100 MG/20 ML Vial PERIprocedural Use ONLY IV.PUSH ONE (16:21)
[2018-07-15] MEDS ORDERED: *morphine SULFATE 4 MG/ML PERIprocedure ONLY ONE (16:53)
[2018-07-15] MEDS ORDERED: ceFAZolin 2 GM Premix Inj 2 GM/50 ML PIGGYBACK IV.SIG ONE (17:44)
--- NOTE | 2018-07-15 22:02 | ECG ---
Date Performed: 07/15/2018 Time Performed: 16:30:31 PTAGE: 82 years EKG: ATRIAL FIBRILLATION MARKED LEFT AXIS DEVIATION LEFT BUNDLE BRANCH BLOCK ABNORMAL ECG PREVIOUS TRACING : 07/14/2018 08.16 Since the previous tracing, no significant change noted DOCTOR: Magui Allred Interpretating Date/Time 07/15/2018 22:01:37
[2018-07-16] MEDS: Sod Chloride 0.9% Inj 1,000 ML IV.CONT SCH ×2 (05:36→15:04)
[2018-07-16] MEDS: dilTIAZem CD 240 MG Capsule PO SCH (08:16)
[2018-07-16] MEDS: Insulin NovoLOG Aspart Correctional Sugar Inj SQ SCH ×4 (08:16→20:16)
[2018-07-16] MEDS: Furosemide 40 MG Tablet PO SCH (08:16)
[2018-07-16] MEDS: Metoprolol Tartrate 50 MG Tablet PO SCH ×2 (08:16→20:14)
--- NOTE | 2018-07-16 11:59 | P.PNIM ---
Subjective Interval history: Mrs. Rosenbaum is an 82-year-old female. She was admitted secondary to fall in which she sustained a left elbow fracture. The fracture is displaced. Surgical intervention is needed. She has had falls in the past but does not have that her no frequent falls. No other complaints at this time. Pain is controlled when seen. Potassium level is low in the ER. Follow-up right displaced olecranon fracture July 15, 2018-patient seen and examined, denies any significant right upper extremity pain. Currently n.p.o. Daughter by the bedside 10-3 NEEDS TO GO TO SN[facility] AT [place] PT AND OT TO EVAL AND TREAT LIVES ALONE PAIN CONTROL AM LABS Physical Exam Vital signs: Vital Signs 07/15/18 12:00 07/15/18 15:30 07/15/18 15:45 Temperature 97.8 F 97.6 F Pulse Rate 74 88 80 Respiratory Rate 18 16 16 Blood Pressure 122/58 L 146/87 H 198/91 H Pulse Oximetry 100 99 96 07/15/18 16:00 07/15/18 16:15 07/15/18 16:30 Temperature Pulse Rate 78 82 74 Respiratory Rate 16 16 16 Blood Pressure 190/102 H 180/100 H 177/85 H Pulse Oximetry 95 95 07/15/18 16:45 07/15/18 17:00 07/15/18 18:15 Temperature 98 F Pulse Rate 74 70 78 Respiratory Rate 16 16 17 Blood Pressure 180/82 H 169/76 H 141/78 H Pulse Oximetry 95 96 07/15/18 20:00 07/16/18 00:00 07/16/18 04:00 Temperature 98.3 F 98.6 F 98.8 F Pulse Rate 75 90 117 H Respiratory Rate 18 18 18 Blood Pressure 145/69 H 185/81 H 140/99 H Pulse Oximetry 96 97 94 L 07/16/18 08:00 07/16/18 09:00 Temperature 98.0 F Pulse Rate 116 H 90 Respiratory Rate 19 Blood Pressure 140/93 H Pulse Oximetry 93 L Intake & Output 07/15/18 07/16/18 07/16/18 18:59 06:59 18:59 Intake Total 2050 / 2050 800 / 800 Output Total 225 / 225 Balance 1825 / 1825 800 / 800 Weight 75.7 kg Intake: IV 1850 / 1850 800 / 800 NS Inj 1,000 ML @ 75 mls/hr IV. 800 / 800 800 / 800 CONT .[id number] [facility] Rx#: [id number] LR 1000 mL Inj 1,000 ML @ 30 1000 / 1000 mls/hr IV.SIG .Q24H [facility] Rx#: [id number] Ancef 2 GM Premix Inj 2 gm In 50 / 50 50 ml @ 0 mls/hr IV.SIG .STK- [facility] Rx#:[id number] Anesthesia Amount 200 / 200 Output: Urine 200 / 200 Estimated Blood Loss 25 / 25 Other: # Voids 1 2 Date of Last Bowel Movement 07/15/18 Narrative: GENERAL: NAD SKIN: Warm and dry. HEAD: Atraumatic. Normocephalic. EYES: Pupils equal and round. No scleral icterus. No injection or drainage. ENT: No nasal bleeding or discharge. Mucous membranes pink and moist. NECK: Trachea midline. No JVD. CARDIOVASCULAR: Regular rate and rhythm. RESPIRATORY: No accessory muscle use. Clear to auscultation. Breath sounds equal bilaterally. GASTROINTESTINAL: Abdomen soft, non-tender, nondistended. Hepatic and splenic margins not palpable. MUSCULOSKELETAL: Extremities without clubbing, cyanosis, or edema. No obvious deformities. NEUROLOGICAL: Awake and alert. No obvious cranial nerve deficits. Motor grossly within normal limits. Five out of 5 muscle strength in the arms and legs. Right upper extremity in dressing-neurovascular intact PSYCHIATRIC: Appropriate mood and affect; insight and judgment normal. Results - Labs CBC & Chem 7: 07/15/18 05:11 07/15/18 05:11 Laboratory Results - last 24 hr 07/15/18 07/15/18 07/15/18 12:16 16:04 20:52 POC Glucose 138 H 162 H 166 H 07/16/18 07/16/18 07:22 11:13 POC Glucose 162 H 170 H - Imaging Impressions Elbow X-Ray 07/15/18 00:00 CONCLUSION: Limited single view exam. - Procedures Date: 07/15/18 15:28 Initialization Date: 07/15/18 15:28 - Preoperative Diagnosis (1) Displaced fracture of olecranon process of right ulna with intra-articular extension - Postoperative Diagnosis (1) Displaced fracture of olecranon process of right ulna with intra-articular extension Date of procedure: 10/02/18 Procedure: Right elbow olecranon fracture fragment excision with triceps tendon advancement Implants: [employer] G2 anchors x2 Anesthesia: GETA Surgeon: Afia Li MD Estimated blood loss (mL): 25 Tourniquet time (min): 70 Pathology: none sent Condition: stable Disposition: PACU Assessment and Plan - Assessment (1) Displaced fracture of olecranon process of right ulna with intra-articular extension Code(s): S52.031A - Displaced fracture of olecranon process with intraarticular extension of right ulna, initial encounter for closed fracture Status: Acute Onset Date: ~07/14/18 (2) Hypertension Code(s): I10 - Essential (primary) hypertension Status: Acute (3) Diabetes mellitus Code(s): E11.9 - Type 2 diabetes mellitus without complications Status: Acute (4) Atrial fibrillation Code(s): I48.91 - Unspecified atrial fibrillation Status: Acute - Plan 82-year-old female with Displaced right elbow fracture [place] for pain Orthopedic surgeon consulted- HAD repair July 15, 2018 Patient is medically clear for surgery Physical therapy after surgery Occupational therapy after surgery Diabetes mellitus type 2 Insulin sliding scale Diabetic diet Hypertension Continue baseline treatment As needed enalapril Atrial fibrillation Controlled Hold anticoagulation for pending surgery Continue diltiazem Resume Xarelto after surgery completed. Hypokalemia Please let try to monitor DVT prophylaxis Currently on Xarelto Xarelto on hold for surgery Code Status: FULL CODE Discussed Condition With: RN AND PT AND CM Discharge Planning: WILL NEED [facility] (1) Displaced fracture of olecranon process of right ulna with intra-articular extension Qualifiers: Encounter type: initial encounter Fracture type: closed Qualified Code(s): S52.031A - Displaced fracture of olecranon process with intraarticular extension of right ulna, initial encounter for closed fracture (2) Hypertension Qualifiers: Hypertension type: unspecified Qualified Code(s): I10 - Essential (primary) hypertension (3) Diabetes mellitus Qualifiers: Diabetes mellitus type: type 2 Diabetes mellitus group home insulin use: without termite control service representative use (4) Atrial fibrillation Qualifiers: Atrial fibrillation type: chronic Qualified Code(s): I48.2 - Chronic atrial fibrillation
--- NOTE | 2018-07-16 21:37 | P.PNOP ---
Subjective Interval history: No overnight events. Appropriate postop pain to right elbow. Still with intermittent knee pain. Physical Exam Vital signs: Vital Signs 07/16/18 00:00 07/16/18 04:00 07/16/18 08:00 Temperature 98.6 F 98.8 F 98.0 F Pulse Rate 90 117 H 116 H Respiratory Rate 18 18 19 Blood Pressure 185/81 H 140/99 H 140/93 H Pulse Oximetry 97 94 L 93 L 07/16/18 09:00 07/16/18 12:00 07/16/18 15:45 Temperature 98.4 F Pulse Rate 90 75 77 Respiratory Rate 19 Blood Pressure 142/63 H Pulse Oximetry 96 07/16/18 16:00 07/16/18 20:00 07/16/18 20:41 Temperature 99.6 F 98.8 F Pulse Rate 78 89 Respiratory Rate 18 17 16 Blood Pressure 142/64 H 151/72 H Pulse Oximetry 96 92 L Intake & Output 07/16/18 07/16/18 07/17/18 06:59 18:59 06:59 Intake Total 800 / 800 400 / 400 Balance 800 / 800 400 / 400 Weight 75.7 kg Intake: IV 800 / 800 NS Inj 1,000 ML @ 75 mls/hr IV. 800 / 800 CONT .[id number] ARLINE Rx#: [id number] Oral 400 / 400 Other: # Voids 2 4 1 Date of Last Bowel Movement 07/15/18 07/15/18 # Bowel Movements 0 Narrative: Right arm splint intact without drainage. +TU/FC/OK. SILT. 2+ radial pulse. Results - Labs CBC & Chem 7: 07/15/18 05:11 07/15/18 05:11 Laboratory Results - last 24 hr 07/16/18 07/16/18 07/16/18 07:22 11:13 16:56 POC Glucose 162 H 170 H 151 H 07/16/18 19:53 POC Glucose 164 H - Procedures Date: 07/15/18 15:28 Initialization Date: 07/15/18 15:28 - Preoperative Diagnosis (1) Displaced fracture of olecranon process of right ulna with intra-articular extension - Postoperative Diagnosis (1) Displaced fracture of olecranon process of right ulna with intra-articular extension Date of procedure: 07/15/18 Procedure: Right elbow olecranon fracture fragment excision with triceps tendon advancement Implants: Mitek G2 anchors x2 Anesthesia: GETA Surgeon: Afia Li MD Estimated blood loss (mL): 25 Tourniquet time (min): 70 Pathology: none sent Condition: stable Disposition: PACU Assessment and Plan - Ortho Post Op Day # 1 - Assessment and Plan Assessment: 82 year old female POD 1 right olecranon fracture excision with triceps advancement Plan: 1. No weightbearing to right arm 2. PT/OT consults 3. OK to discharge from orthopedic standpoint, follow up in 10-14 days in clinic
[2018-07-17] MEDS: Sod Chloride 0.9% Inj 1,000 ML IV.CONT SCH (05:01)
[2018-07-17 07:22] LABS: Baso # (Auto) 0.1 th/mm3 (0.0-0.2); Baso % (Auto) 0.6 % (0.0-2.0); Eos # (Auto) 0.1 th/mm3 (0.0-0.4); Eos % (Auto) 0.6 % (0.0-4.0); Hematocrit 33.4 % (35.0-46.0); Hemoglobin 11.6 gm/dL (11.6-15.3); Lymph # (Auto) 2.1 th/mm3 (1.0-4.8); Lymph % (Auto) 21.7 % (9.0-44.0); Mean Corpuscular HGB Conc 34.6 % (32.0-36.0); Mean Corpuscular Hemoglobin 33.8 pg (27.0-34.0); Mean Corpuscular Volume 97.6 fL (80.0-100.0); Mean Platelet Volume 9.4 fL (7.0-11.0); Mono # (Auto) 0.9 th/mm3 (0.0-0.9); Mono % (Auto) 8.9 % (0.0-8.0); Neut # (Auto) 6.7 th/mm3 (1.8-7.7); Neut % (Auto) 68.2 % (16.0-70.0); Platelet Count 215 th/mm3 (150-450); Red Blood Count 3.43 mil/mm3 (4.00-5.30); Red Cell Distribution Width 14.2 % (11.6-17.2); White Blood Count 9.8 th/mm3 (4.0-11.0)
[2018-07-17 07:46] LABS: Alanine Aminotransferase 13 U/L (10-53); Albumin 2.7 g/dL (3.4-5.0); Alkaline Phosphatase 118 U/L (45-117); Anion Gap 9 meq/L (5-15); Aspartate Aminotransferase 14 U/L (15-37); Blood Urea Nitrogen 12 mg/dL (7-18); Calcium 9.2 mg/dL (8.5-10.1); Carbon Dioxide 29.8 meq/L (21.0-32.0); Chloride 102 meq/L (98-107); Free T4 (Free Thyroxine) 1.63 ng/dL (0.76-1.46); Glomerular Filtration Rate 48 mL/min (>89); Glucose,Random 126 mg/dL (74-106); Magnesium 1.5 mg/dL (1.5-2.5); Phosphorus 2.4 mg/dL (2.5-4.9); Sodium 141 meq/L (136-145); Thyroid Stimulating Hormone 0.739 uIU/mL (0.358-3.740); Total Protein 6.3 g/dL (6.4-8.2)
[2018-07-17 07:55] LABS: Potassium 2.7 meq/L (3.5-5.1)
[2018-07-17] MEDS: dilTIAZem CD 240 MG Capsule PO SCH (08:20)
[2018-07-17] MEDS: Metoprolol Tartrate 50 MG Tablet PO SCH (08:20)
[2018-07-17] MEDS: Furosemide 40 MG Tablet PO SCH (08:20)
[2018-07-17] MEDS: Insulin NovoLOG Aspart Correctional Sugar Inj SQ SCH ×2 (08:20→11:58)
[2018-07-17] MEDS ORDERED: Rivaroxaban 20 MG Tablet PO SCH (09:00)
[2018-07-17] MEDS ORDERED: Potassium Chlor 20 mEq Premix 20 MEQ/100 ML PIGGYBACK IV.SIG ONE (09:00)
--- NOTE | 2018-07-17 09:11 | P.PN ---
Subjective Interval history: Follow-up for right displaced olecranon fracture; s/p fragment excision with triceps tendon advancement 07/15-patient awake, alert oriented x3, hard of hearing. Pain is manageable. Denies any chest pain, no shortness of breath. Still with some right knee pain. Denies any nausea, no vomiting, no diarrhea. Wants to go home, states she has caregivers. Daughter at bedside, indicates that patient is not safe to go home as she is having some difficulty getting up from bed and she is concerned that she will be noncompliant at home. Requesting placement at SNF. Daughter prefers [facility]. Physical Exam Vital signs: Vital Signs 07/16/18 09:00 07/16/18 12:00 07/16/18 15:45 Temperature 98.4 F Pulse Rate 90 75 77 Respiratory Rate 19 Blood Pressure 142/63 H Pulse Oximetry 96 07/16/18 16:00 07/16/18 20:00 07/16/18 20:41 Temperature 99.6 F 98.8 F Pulse Rate 78 89 Respiratory Rate 18 17 16 Blood Pressure 142/64 H 151/72 H Pulse Oximetry 96 92 L 07/17/18 00:00 07/17/18 04:00 07/17/18 06:20 Temperature 99.0 F 98.6 F Pulse Rate 66 103 H Respiratory Rate 17 18 18 Blood Pressure 124/69 138/90 Pulse Oximetry 94 L 93 L Intake & Output 07/16/18 07/17/18 07/17/18 18:59 06:59 18:59 Intake Total 400 / 400 520 / 520 Output Total 1200 / 1200 Balance 400 / 400 -680 / -680 Weight 75.8 kg Intake: Oral 400 / 400 520 / 520 Output: Urine 1200 / 1200 Other: # Voids 4 1 Date of Last Bowel Movement 07/15/18 # Bowel Movements 0 Narrative: GENERAL: NAD SKIN: Warm and dry. HEAD: Atraumatic. Normocephalic. EYES: Pupils equal and round. No scleral icterus. No injection or drainage. ENT: No nasal bleeding or discharge. Mucous membranes pink and moist. NECK: Trachea midline. No JVD. CARDIOVASCULAR: Irregularly irregular, no murmurs, no rubs, no gallops. RESPIRATORY: No accessory muscle use. Clear to auscultation. Breath sounds equal bilaterally. GASTROINTESTINAL: Abdomen soft, non-tender, nondistended. Hepatic and splenic margins not palpable. MUSCULOSKELETAL: Extremities without clubbing, cyanosis, or edema. No obvious deformities. Right upper extremity in sling, dressing in place. Intact sensation to right hand fingertips. Capillary refill less than 3 seconds. NEUROLOGICAL: Awake and alert. No obvious cranial nerve deficits. Motor grossly within normal limits. Five out of 5 muscle strength in the arms and legs. Right upper extremity in dressing-neurovascular intact PSYCHIATRIC: Appropriate mood and affect; insight and judgment normal. Results - Labs CBC & Chem 7: 07/17/18 05:48 07/17/18 05:48 Laboratory Results - last 24 hr 07/16/18 07/16/18 07/16/18 11:13 16:56 19:53 WBC RBC Hgb Hct MCV MCH MCHC RDW Plt Count MPV Neut % (Auto) Lymph % (Auto) [place] % (Auto) Eos % (Auto) Baso % (Auto) Neut # (Auto) Lymph # (Auto) [place] # (Auto) Eos # (Auto) Baso # (Auto) WBC Differential Differential Comment Sodium Potassium Chloride Carbon Dioxide Anion Gap BUN Creatinine Estimated GFR POC Glucose 170 H 151 H 164 H Random Glucose Calcium Phosphorus Magnesium Total Bilirubin AST ALT Alkaline Phosphatase Total Protein Albumin TSH Free T4 07/17/18 07/17/18 07/17/18 05:48 05:48 07:59 WBC 9.8 RBC 3.43 L Hgb 11.6 Hct 33.4 L MCV 97.6 MCH 33.8 MCHC 34.6 RDW 14.2 Plt Count 215 MPV 9.4 Neut % (Auto) 68.2 Lymph % (Auto) 21.7 [place] % (Auto) 8.9 H Eos % (Auto) 0.6 Baso % (Auto) 0.6 Neut # (Auto) 6.7 Lymph # (Auto) 2.1 [place] # (Auto) 0.9 Eos # (Auto) 0.1 Baso # (Auto) 0.1 WBC Differential . Differential Comment Auto diff final Sodium 141 Potassium 2.7 L* Chloride 102 Carbon Dioxide 29.8 Anion Gap 9 BUN 12 Creatinine 1.10 H Estimated GFR 48 L POC Glucose 145 H Random Glucose 126 H Calcium 9.2 Phosphorus 2.4 L Magnesium 1.5 Total Bilirubin 0.9 AST 14 L ALT 13 Alkaline Phosphatase 118 H Total Protein 6.3 L Albumin 2.7 L TSH 0.739 Free T4 1.63 H - Procedures Date: 07/15/18 15:28 Initialization Date: 07/15/18 15:28 - Preoperative Diagnosis (1) Displaced fracture of olecranon process of right ulna with intra-articular extension - Postoperative Diagnosis (1) Displaced fracture of olecranon process of right ulna with intra-articular extension Date of procedure: 07/15/18 Procedure: Right elbow olecranon fracture fragment excision with triceps tendon advancement Implants: Mitek G2 anchors x2 Anesthesia: GETA Surgeon: Afia Li MD Estimated blood loss (mL): 25 Tourniquet time (min): 70 Pathology: none sent Condition: stable Disposition: PACU Assessment and Plan - Assessment (1) Displaced fracture of olecranon process of right ulna with intra-articular extension Code(s): S52.031A - Displaced fracture of olecranon process with intraarticular extension of right ulna, initial encounter for closed fracture Status: Acute Onset Date: ~07/14/18 (2) Hypertension Code(s): I10 - Essential (primary) hypertension Status: Acute (3) Diabetes mellitus Code(s): E11.9 - Type 2 diabetes mellitus without complications Status: Acute (4) Atrial fibrillation Code(s): I48.91 - Unspecified atrial fibrillation Status: Acute (5) Hypokalemia Code(s): E87.6 - Hypokalemia Status: Acute - Plan 82-year-old female status post mechanical fall with right elbow and right knee pain. Displaced right elbow fracture -S/P Right elbow olecranon fracture fragment excision with triceps tendon advancement 07/15 -appreciate ortho input -cleared for discharge -PT/OT eval Diabetes mellitus type 2 -Insulin sliding scale -Diabetic diet Hypertension -Continue Cozaar, Lasix, beta-justin -As needed enalapril Atrial fibrillation Controlled, HR 90s -continuos telemetry -Continue diltiazem and beta-justin Resume Xarelto Hypokalemia -K 2.6, replace IV/PO and repeat at 1300 DVT prophylaxis Currently on Xarelto Case management for discharge planning. Patient's daughter prefers [facility], SNF list has been provided. [facility] evaluation pending. Possible discharge today if she is accepted. Code Status: Full code Discussed Condition With: RN patient and daughter, case management Discharge Planning: Patient pending dc to either [facility] versus SNF today (1) Displaced fracture of olecranon process of right ulna with intra-articular extension Qualifiers: Encounter type: initial encounter Fracture type: closed Qualified Code(s): S52.031A - Displaced fracture of olecranon process with intraarticular extension of right ulna, initial encounter for closed fracture (2) Hypertension Qualifiers: Hypertension type: unspecified Qualified Code(s): I10 - Essential (primary) hypertension (3) Diabetes mellitus Qualifiers: Diabetes mellitus type: type 2 Diabetes mellitus oysterman insulin use: without oysterman use (4) Atrial fibrillation Qualifiers: Atrial fibrillation type: chronic Qualified Code(s): I48.2 - Chronic atrial fibrillation
[2018-07-17 09:22] VITALS: RESP 20
[2018-07-17] MEDS: Potassium Chloride 25 MEQ Effervescent Tablet PO ONE ×2 (10:51→13:12)
[2018-07-17] MEDS ORDERED: Potassium Chloride 25 MEQ Effervescent Tablet PO ONE (15:45)
[2018-07-17 16:25] VITALS: BP 130/73; PULSE 75; TEMP 98; O2SAT 94
--- NOTE | 2018-07-17 16:30 | P.DS ---
Date of admission: 07/14/18 08:34 Primary care physician: Laury Jameson MD Attending physician on discharge: Nida Chirinos Anticipated date of discharge: 07/17/18 Brief History from admission: Mrs. Rosenbaum is an 82-year-old female. She was admitted secondary to fall in which she sustained a left elbow fracture. The fracture is displaced. Surgical intervention is needed. She has had falls in the past but does not have that her no frequent falls. No other complaints at this time. Pain is controlled when seen. Potassium level is low in the ER. DS: Diagnosis - Discharge Diagnosis (1) Displaced fracture of olecranon process of right ulna with intra-articular extension Status: Acute (2) Hypertension Status: Chronic (3) Diabetes mellitus Status: Acute (4) Atrial fibrillation Status: Chronic (5) Hypokalemia Status: Acute DS: Summary Hospital Course: Mrs. Rosenbaum is an 82-year-old female. She was admitted secondary to fall in which she sustained a left elbow fracture. The fracture was displaced. Surgical intervention is needed. She has had falls in the past but does not have hx of frequent falls. c/o right knee pain, xray done, no fracture. Pt. Found with low k in ED. Was seen by ortho, surgery recommended. Had Right elbow olecranon fracture fragment excision with triceps tendon advancement 07/15. Post op ortho care. Did well. PT/OT ordered. K repeated, K 2.6. Replaced IV/ PO, pt. on Lasix at home. Pt. with hx of afib, Xarelto held before OR and resumed post op day #2. Was put on telemetry, continued on home meds CM consult for dc planning, CIR and SNF recommended. Pt. accepted at [facility] Pt. discharged to [facility] in stable condition - Time Spent with Patient Total time spent providing and/or coordinating discharge services:35 Greater than 30 minutes - Quality: VTE Deep Vein Thrombosis/Pulmonary Embolism Present on Admission: No Exam Vital signs: Vital Signs 07/16/18 20:00 07/16/18 20:41 07/17/18 00:00 Temperature 98.8 F 99.0 F Pulse Rate 89 66 Respiratory Rate 17 16 17 Blood Pressure 151/72 H 124/69 Pulse Oximetry 92 L 94 L 07/17/18 04:00 07/17/18 06:20 07/17/18 08:00 Temperature 98.6 F 98.5 F Pulse Rate 103 H 82 Respiratory Rate 18 18 20 Blood Pressure 138/90 164/75 H Pulse Oximetry 93 L 94 L 07/17/18 12:00 07/17/18 16:00 Temperature 98.4 F 98 F Pulse Rate 74 75 Respiratory Rate 20 20 Blood Pressure 141/67 H 130/73 Pulse Oximetry 93 L 94 L Intake & Output 07/16/18 07/17/18 07/17/18 18:59 06:59 18:59 Intake Total 400 / 400 520 / 520 Output Total 1200 / 1200 Balance 400 / 400 -680 / -680 Weight 75.8 kg Intake: Oral 400 / 400 520 / 520 Output: Urine 1200 / 1200 Other: # Voids 4 1 Date of Last Bowel Movement 07/15/18 07/14/18 # Bowel Movements 0 Results Procedures completed during hospitalization: Date: 07/15/18 15:28 Initialization Date: 07/15/18 15:28 - Preoperative Diagnosis (1) Displaced fracture of olecranon process of right ulna with intra-articular extension - Postoperative Diagnosis (1) Displaced fracture of olecranon process of right ulna with intra-articular extension Date of procedure: 07/15/18 Procedure: Right elbow olecranon fracture fragment excision with triceps tendon advancement Implants: Mitek G2 anchors x2 Anesthesia: GETA Surgeon: Afia Li MD Estimated blood loss (mL): 25 Tourniquet time (min): 70 Pathology: none sent Condition: stable Disposition: PACU Labs on day of discharge: Labs from last 24 hours 07/17/18 07/17/18 07/17/18 14:40 11:55 07:59 WBC RBC Hgb Hct MCV MCH MCHC RDW Plt Count MPV Neut % (Auto) Lymph % (Auto) [place] % (Auto) Eos % (Auto) Baso % (Auto) Neut # (Auto) Lymph # (Auto) [place] # (Auto) Eos # (Auto) Baso # (Auto) WBC Differential Differential Comment Sodium Potassium 3.2 L Chloride Carbon Dioxide Anion Gap BUN Creatinine Estimated GFR POC Glucose 186 H 145 H Random Glucose Hemoglobin A1c Calcium Phosphorus Magnesium Total Bilirubin AST ALT Alkaline Phosphatase Total Protein Albumin TSH Free T4 07/17/18 07/17/18 07/17/18 05:48 05:48 05:48 WBC 9.8 RBC 3.43 L Hgb 11.6 Hct 33.4 L MCV 97.6 MCH 33.8 MCHC 34.6 RDW 14.2 Plt Count 215 MPV 9.4 Neut % (Auto) 68.2 Lymph % (Auto) 21.7 [place] % (Auto) 8.9 H Eos % (Auto) 0.6 Baso % (Auto) 0.6 Neut # (Auto) 6.7 Lymph # (Auto) 2.1 [place] # (Auto) 0.9 Eos # (Auto) 0.1 Baso # (Auto) 0.1 WBC Differential . Differential Comment Auto diff final Sodium 141 Potassium 2.7 L* Chloride 102 Carbon Dioxide 29.8 Anion Gap 9 BUN 12 Creatinine 1.10 H Estimated GFR 48 L POC Glucose Random Glucose 126 H Hemoglobin A1c Pending Calcium 9.2 Phosphorus 2.4 L Magnesium 1.5 Total Bilirubin 0.9 AST 14 L ALT 13 Alkaline Phosphatase 118 H Total Protein 6.3 L Albumin 2.7 L TSH 0.739 Free T4 1.63 H 07/16/18 07/16/18 19:53 16:56 WBC RBC Hgb Hct MCV MCH MCHC RDW Plt Count MPV Neut % (Auto) Lymph % (Auto) [place] % (Auto) Eos % (Auto) Baso % (Auto) Neut # (Auto) Lymph # (Auto) [place] # (Auto) Eos # (Auto) Baso # (Auto) WBC Differential Differential Comment Sodium Potassium Chloride Carbon Dioxide Anion Gap BUN Creatinine Estimated GFR POC Glucose 164 H 151 H Random Glucose Hemoglobin A1c Calcium Phosphorus Magnesium Total Bilirubin AST ALT Alkaline Phosphatase Total Protein Albumin TSH Free T4 - Impressions ITS Impressions Knee X-Ray 07/14/18 07:02 CONCLUSION: Osteoporosis, negative for joint effusion or fracture Extensive vascular calcifications. Elbow X-Ray 07/15/18 00:00 CONCLUSION: Limited single view exam. Discharge Plan - Discharge Disposition Patient Disposition: [facility] Inpatient - Discharge Condition Condition: Stable - Discharge Order Discharge Orders: Discharge Order (Routine); Ordered 07/17/18 Ordered By: Chandrika Fajardo - Discharge Details Anticipated Discharge Date: 07/17/18 - Physicians Team Primary Care Provider: Laury Jameson Attending Provider: Nida Chirinos Other Providers: Hemant Paz MD
[2018-07-17 17:51] LABS: Hemoglobin A1c 7.2 % (4.3-6.0)
--- NOTE | 2018-07-18 12:29 | MP ---
cc: Afia Li MD DATE OF OPERATION: 07/15/2018 DATE OF SERVICE: 07/15/2018 PREOPERATIVE DIAGNOSIS: Right comminuted olecranon fracture, closed. POSTOPERATIVE DIAGNOSIS: Right comminuted olecranon fracture, closed. NAME OF OPERATION: Excision of olecranon fracture fragments of triceps tendon advancement. SURGEON: Dr. Afia Li. LITHOGRAPH DESIGNER: None. ANESTHESIA: General endotracheal. ESTIMATED BLOOD LOSS: 25 mL TOURNIQUET TIME: 70 minutes at 250 mmHg. IMPLANTS USED: Mitek G2 suture anchors x2. DESCRIPTION OF PROCEDURE: The patient was brought to the operating room and general endotracheal anesthesia was administered. She was then positioned in lateral position with a beanbag. A tourniquet was placed on the right upper arm and the right upper extremity was then prepped and draped in the usual sterile fashion. A timeout was performed to confirm the correct side, site and procedure, and everybody in the room was in agreement. The arm was then exsanguinated using an Esmarch and the tourniquet was inflated to 250. The posterior incision was made over the elbow, curving slightly laterally around the elbow crease. Dissection was carried down to bone. Significant hematoma was encountered and this was evacuated with copious amounts of irrigation. The fracture was then exposed and the proximal olecranon piece was found to be quite comminuted. Attempts to reduce these multiple fracture fragments was made, but her bone quality was noted to be quite poor and I was unable to get any purchase in these fragments. The decision was then made to proceed with excision of these multiple fragments and perform a triceps tendon advancement. Two G2 suture anchors were then placed in the distal portion of the ulna and Krackow stitches were placed through the triceps tendon on both sides. The tendon was then appropriately reduced and tensioned, and sutures were tied down. I tested the repair and was able to flex the elbow gently slightly past 90 degrees without any gapping or excessive tension on the repair. Images were then taken to confirm good anchor placement. The wound was then irrigated once more and closed in layered fashion with 0 -Vicryl, 2-0 Vicryl and 3-0 nylon followed by application of Xeroform, 4 x 4's, ABD, and sterile cast padding. The tourniquet was deflated and a well-padded posterior elbow splint was applied with the elbow at 90 degrees. A sling was then placed and the patient was awakened and taken to the recovery room in stable condition. The patient will be kept nonweightbearing on this extremity and we will plan to remove the splint in 2 weeks to begin gentle range of motion. MD APOLINAR Schroeder/adenike , 10:30 AM , 10:41 AM
== END 2018-07-17 16:45 ==
LOC: PHED 05:56 → PHEDA 08:34 → N06 11:47
PROVIDERS: ADMIT Internal Medicine; ATTEND Internal Medicine
PROC: ORIFELB (2018-07-15 13:16)